=== PATIENT | male | born 1985 | race Caucasian/White ===

== ENCOUNTER 2022-07-07 16:06 | Inpatient (IN) | payer OTHER ==
[2022-07-07 16:41] VITALS: BMI 37.3
[2022-07-07] MEDS ORDERED: BENZOCAINE/MENTHOL (CHLORASEPTIC ) LOZENGE MM PRN (19:00)
[2022-07-07] MEDS ORDERED: NALOXONE HCL (KLOXXADO) 8 MG SPRAY NS PRN (19:00)
[2022-07-07] MEDS ORDERED: LOPERAMIDE HCL 2 MG CAPSULE PO PRN (19:00)
[2022-07-07] MEDS ORDERED: LORazepam 1 MG TABLET PO PRN (19:00)
[2022-07-07] MEDS ORDERED: DICYCLOMINE HCL 10 MG CAPSULE PO PRN (19:00)
[2022-07-07] MEDS ORDERED: ACETAMINOPHEN 325 MG TABLET (FP) PO PRN ×2 (19:00)
[2022-07-07] MEDS ORDERED: MAGNESIUM HYDROX 2400MG/30ML ORAL SUSPENSION 30 ML CUP PO PRN (19:00)
[2022-07-07] MEDS ORDERED: POLYETHYLENE GLYCOL (HEALTHYLAX) 3350 17 GM PACKET PO PRN (19:00)
[2022-07-07] MEDS ORDERED: MAG HYDROX/AL HYDROX/SIMETH 30 ML UNIT-DOSE CUP PO PRN (19:00)
[2022-07-07] MEDS ORDERED: ONDANSETRON *ODT* 4 MG TABLET SL PRN (19:00)
[2022-07-07] MEDS ORDERED: BISMUTH SUBSALICYLATE 524 MG/30 ML PO PRN (19:00)
[2022-07-07] MEDS ORDERED: IBUPROFEN 400 MG TABLET (FP) PO PRN (19:00)
[2022-07-07] MEDS ORDERED: IBUPROFEN 600 MG TABLET (FP) PO PRN (19:00)
[2022-07-07] MEDS ORDERED: LORazepam 1 MG TABLET ONE (19:41)
[2022-07-07] MEDS ORDERED: MELATONIN 5 MG TABLETS PO SCH (22:00)
[2022-07-07] MEDS: LORazepam 2 MG TABLET PO SCH (22:33)
[2022-07-07] MEDS: THIAMINE HCL 100 MG TABLET (FP) PO SCH (22:34)
[2022-07-08] MEDS: hydrOXYzine PAMOATE 25 MG CAPSULE (FP) PO PRN ×2 (02:27→10:04)
[2022-07-08] MEDS: METHOCARBAMOL 500 MG TABLET PO PRN ×2 (02:27→10:04)
[2022-07-08] MEDS: LORazepam 2 MG TABLET PO SCH ×4 (05:39→22:36)
[2022-07-08] MEDS: PRENATAL VITAMINS W/ FOLIC ACID TABLET (FP) PO SCH (10:04)
[2022-07-08] MEDS: THIAMINE HCL 100 MG TABLET (FP) PO SCH (22:35)
[2022-07-08] MEDS: MELATONIN 5 MG TABLETS PO PRN (22:36)
[2022-07-09] MEDS: LORazepam 1 MG TABLET PO SCH ×4 (05:19→22:23)
[2022-07-09] MEDS: PRENATAL VITAMINS W/ FOLIC ACID TABLET (FP) PO SCH (10:33)
[2022-07-09] MEDS ORDERED: methaDONE HCL 10 MG TABLET PO ONE (12:03)
[2022-07-09 13:57] LABS: ALBUMIN 3.5 g/dl (3.4-5.0); CALCIUM 8.8 mg/dL (8.5-10.1)
[2022-07-09 14:01] LABS: CREATININE 0.8 mg/dL (0.55-1.3)
[2022-07-09 14:02] LABS: BILIRUBIN,TOTAL 2.5 mg/dL (0.2-1); TOT PROT 8.1 g/dl (6.4-8.2)
[2022-07-09] MEDS: THIAMINE HCL 100 MG TABLET (FP) PO SCH (22:23)
[2022-07-09] MEDS: MELATONIN 5 MG TABLETS PO PRN (22:24)
[2022-07-10] MEDS ORDERED: LORazepam 0.5 MG TABLET PO PRN
[2022-07-10] MEDS: LORazepam 0.5 MG TABLET PO SCH ×2 (05:25→10:33)
[2022-07-10 07:05] VITALS: RESP 18
[2022-07-10 09:34] VITALS: BP 121/76; PULSE 105; TEMP 98.4
[2022-07-10] MEDS: PRENATAL VITAMINS W/ FOLIC ACID TABLET (FP) PO SCH (09:55)
[2022-07-11] MEDS ORDERED: LORazepam 0.5 MG TABLET PO ONE (05:00)
== END 2022-07-10 09:15 | disposition left against medical advice (07) | DRG 770 ==
LOC: YASAS 16:06 → Y6N 19:49
PROVIDERS: ADMIT Allergy & Immunology; ATTEND Surgery
PROC: HZ2ZZZZ Detoxification Services for Substance Abuse Treatment (ICD-10-PCS; principal; 2022-07-07)
DX: F10.230 Alcohol dependence with withdrawal, uncomplicated (principal); F11.20 Opioid dependence, uncomplicated; F31.9 Bipolar disorder, unspecified; F19.24 Other psychoactive substance dependence with psychoactive substance-induced mood disorder; I83.92 Asymptomatic varicose veins of left lower extremity; I10 Essential (primary) hypertension; J45.20 Mild intermittent asthma, uncomplicated; K70.30 Alcoholic cirrhosis of liver without ascites; M54.50 Low back pain, unspecified; G89.29 Other chronic pain; Z28.310 Unvaccinated for COVID-19; Z28.9 Immunization not carried out for unspecified reason
CPT/HCPCS: 36415; 80053; 86780; 87811; C9803-CS; Q0162; U0003; U0005